=== PATIENT | male | born 1945 | race Hispanic/Latino ===

== ENCOUNTER → 2020-09-22 | Outpatient (CLI) | payer OTHER | END | disposition home or self-care (01) | LOC: RAH 08:58 | PROVIDERS: ATTEND Internal Medicine | DX: R14.0 Abdominal distension (gaseous) (principal); R14.3 Flatulence | CPT/HCPCS: 76700 ==

== ENCOUNTER → 2021-12-28 | Outpatient (CLI) | payer OTHER | END | disposition home or self-care (01) | LOC: RAH 13:01 | PROVIDERS: ATTEND Internal Medicine | DX: E04.1 Nontoxic single thyroid nodule (principal); R13.10 Dysphagia, unspecified | CPT/HCPCS: 76536 ==

== ENCOUNTER 2023-03-02 17:13 | Observation (INO) | payer OTHER ==
[~2023-03-02] VITALS: Ht 170.2 cm; Wt 86.6 kg
[2023-03-02 17:50] LABS: BASOPHILS % (AUTO) 0.7 % (0.0-5.0); EOSINOPHILS % (AUTO) 0.4 % (0.0-8.0); HEMATOCRIT 40.3 % (42-54); LYMPHOCYTES % (AUTO) 20.7 % (21.0-51.0); MEAN CORPUSCULAR HEMOGLOBIN 30.1 pg (27.0-33.0); MEAN CORPUSCULAR HGB CONC 35.5 g/dL (32.0-36.0); MEAN CORPUSCULAR VOLUME 84.8 fL (79-99); NEUTROPHILS % (AUTO) 71.9 % (40.0-77.0); PLATELET COUNT (AUTO) 273 K/uL (130-400); RED BLOOD CELL COUNT(AUTO) 4.75 MIL/uL (4.50-6.20); RED CELL DISTRIBUTION WIDTH 13.3 % (11.0-15.5); WHITE BLOOD COUNT (AUTO) 6.8 K/uL (4.8-10.8)
[2023-03-02 18:02] LABS: CREATININE 0.9 mg/dL (0.5-1.5); POTASSIUM 3.1 mmol/L (3.5-5.1)
[2023-03-02 18:09] LABS: ALBUMIN 3.8 g/dL (3.5-5.0)
[2023-03-02 18:12] LABS: B-TYPE NATRIURETIC PEPTIDE 59 pg/mL (0-100)
[2023-03-02 18:27] LABS: INR 1.09 (0.85-1.15); PROTHROMBIN TIME 11.8 SEC (9.6-11.6)
[2023-03-02] MEDS ORDERED: NITROGLYCERIN 1GM OINT 1 INCH/1GM TD ONE (18:30)
[2023-03-02] MEDS ORDERED: ASPIRIN 81MG CHEW TAB PO ONE (18:30)
[2023-03-02] MEDS ORDERED: KCL 20 MEQ ERTAB PO ONE ×2 (20:00→23:30)
[2023-03-02] MEDS ORDERED: MORPHINE 2 MG SYG IVP PRN (20:30)
[2023-03-02] MEDS ORDERED: CLONIDINE HCL 0.1 MG TABLET PO PRN (20:30)
[2023-03-02] MEDS ORDERED: ACETAMINOPHEN 325 MG TAB PO PRN (20:30)
[2023-03-02] MEDS ORDERED: ONDANSETRON 4MG INJ IVP PRN (20:30)
[2023-03-02] MEDS ORDERED: TEMAZEPAM 15 MG CAPSULE PO PRN (20:30)
[2023-03-02] MEDS ORDERED: LACTULOSE 20 GM/30 ML UDCUP PO PRN (20:30)
[2023-03-02] MEDS ORDERED: HYDRALAZINE 20MG/ML VIAL IV PRN (20:30)
[2023-03-02] MEDS ORDERED: IPRATROPIUM/ALBUTEROL SULFATE 3 ML SOLUTION IH PRN (20:30)
[2023-03-02] MEDS: FAMOTIDINE 20MG TAB PO SCH (23:42)
[2023-03-02] MEDS: ATORVASTATIN 40 MG TABLET PO SCH (23:42)
[2023-03-02] MEDS: DOCUSATE SODIUM 100 MG CAP PO SCH (23:42)
[2023-03-03] MEDS: ENOXAPARIN SODIUM 40 MG/0.4 ML SYRINGE SQ SCH ×2 (03:00→09:09)
[2023-03-03] MEDS ORDERED: OMEP20CA12 PO (04:26)
[2023-03-03] MEDS ORDERED: LEVO50TA11 PO (04:26)
[2023-03-03] MEDS ORDERED: ATOR10TA69 PO (04:26)
[2023-03-03] MEDS ORDERED: AMLO1CAP88 PO (04:26)
[2023-03-03 04:30] VITALS: BP 177/86
[2023-03-03 05:15] LABS: AMPHET/METH SCREEN,URINE NEGATIVE (NEGATIVE); BARBITURATE SCREEN, URINE NEGATIVE (NEGATIVE); BENZODIAZEPINES SCREEN,URINE NEGATIVE (NEGATIVE); CANNABINOID SCREEN,URINE NEGATIVE (NEGATIVE); COCAINE SCREEN,URINE NEGATIVE (NEGATIVE); OPIATE SCREEN,URINE NEGATIVE (NEGATIVE); PHENCYCLIDINE SCREEN,URINE NEGATIVE (NEGATIVE)
[2023-03-03 05:35] LABS: BASOPHILS % (AUTO) 1.4 % (0.0-5.0); EOSINOPHILS % (AUTO) 3.3 % (0.0-8.0); HEMATOCRIT 39.7 % (42-54); LYMPHOCYTES % (AUTO) 25.2 % (21.0-51.0); MEAN CORPUSCULAR HEMOGLOBIN 30.1 pg (27.0-33.0); MEAN CORPUSCULAR HGB CONC 34.8 g/dL (32.0-36.0); MEAN CORPUSCULAR VOLUME 86.5 fL (79-99); MONOCYTES % (AUTO) 9.1 % (3.0-13.0); NEUTROPHILS % (AUTO) 60.8 % (40.0-77.0); PLATELET COUNT (AUTO) 246 K/uL (130-400); RED BLOOD CELL COUNT(AUTO) 4.59 MIL/uL (4.50-6.20); RED CELL DISTRIBUTION WIDTH 13.4 % (11.0-15.5); WHITE BLOOD COUNT (AUTO) 6.4 K/uL (4.8-10.8)
[2023-03-03 05:56] LABS: HEMOGLOBIN A1C 5.8 % (4.0-6.0)
[2023-03-03 06:16] LABS: CREATININE 0.8 mg/dL (0.5-1.5); MAGNESIUM 1.7 mg/dL (1.80-2.40); PHOSPHORUS 2.7 mg/dL (2.5-4.9); POTASSIUM 3.2 mmol/L (3.5-5.1); THYROID STIMULATING HORMONE 2.12 uIU/mL (0.36-3.74)
[2023-03-03] MEDS ORDERED: MAGNESIUM 2GM PREMIX 50ML 50 ML IV PRN (06:30)
[2023-03-03] MEDS ORDERED: POTASSIUM CHLORIDE 10% ELIXIR 20 MEQ/15 ML UDCUP PO PRN (06:30)
[2023-03-03] MEDS ORDERED: POTASSIUM CHLORIDE 10MEQ/100ML 100 ML IV PRN (06:30)
[2023-03-03] MEDS: KCL 20 MEQ ERTAB PO PRN ×3 (06:54→15:37)
[2023-03-03 08:00] VITALS: BP 176/93
[2023-03-03] MEDS: DOCUSATE SODIUM 100 MG CAP PO SCH ×2 (09:08→19:41)
[2023-03-03] MEDS: FAMOTIDINE 20MG TAB PO SCH ×2 (09:08→19:41)
[2023-03-03 11:36] VITALS: BP 128/84
[2023-03-03 16:00] VITALS: BP 173/92
[2023-03-03] MEDS: ATORVASTATIN 40 MG TABLET PO SCH (19:41)
[2023-03-03 20:00] VITALS: BP 142/79
[2023-03-04] VITALS: BP 147/82
[2023-03-04 04:00] VITALS: BP 144/86
[2023-03-04 05:47] LABS: BASOPHILS % (AUTO) 1.2 % (0.0-5.0); EOSINOPHILS % (AUTO) 3.4 % (0.0-8.0); HEMATOCRIT 40.5 % (42-54); LYMPHOCYTES % (AUTO) 23.9 % (21.0-51.0); MEAN CORPUSCULAR HEMOGLOBIN 30.1 pg (27.0-33.0); MEAN CORPUSCULAR HGB CONC 34.8 g/dL (32.0-36.0); MEAN CORPUSCULAR VOLUME 86.5 fL (79-99); MONOCYTES % (AUTO) 6.8 % (3.0-13.0); NEUTROPHILS % (AUTO) 64.3 % (40.0-77.0); PLATELET COUNT (AUTO) 270 K/uL (130-400); RED BLOOD CELL COUNT(AUTO) 4.68 MIL/uL (4.50-6.20); RED CELL DISTRIBUTION WIDTH 13.4 % (11.0-15.5); WHITE BLOOD COUNT (AUTO) 7.3 K/uL (4.8-10.8)
[2023-03-04 06:28] LABS: ALBUMIN 3.4 g/dL (3.5-5.0); CREATININE 0.8 mg/dL (0.5-1.5); MAGNESIUM 2.1 mg/dL (1.80-2.40); POTASSIUM 3.8 mmol/L (3.5-5.1); TOTAL PROTEIN, SERUM 6.7 g/dL (6.0-8.3)
[2023-03-04 08:00] VITALS: BP 162/96
[2023-03-04] MEDS ORDERED: FAMO20TA8 PO (08:51)
== END 2023-03-04 11:00 | disposition home or self-care (01) ==
LOC: EDH 17:13 → EDHIP 20:03 → 4BH 03-03 02:58
PROVIDERS: ADMIT Internal Medicine; ATTEND Internal Medicine
DX: I20.9 Angina pectoris, unspecified (principal); E87.6 Hypokalemia; I10 Essential (primary) hypertension; I48.0 Paroxysmal atrial fibrillation; E07.9 Disorder of thyroid, unspecified; E78.5 Hyperlipidemia, unspecified; K21.9 Gastro-esophageal reflux disease without esophagitis; Z87.442 Personal history of urinary calculi; Z79.899 Other long term (current) drug therapy
CPT/HCPCS: 99285; 82550 ×2; 83874 ×2; 84484 ×3; 80053 ×2; 83880; 85025 ×3; 85610; 36415 ×3; 71045; 93005 ×3; 96372; 96365; 96366; 83036; 84443; 83735 ×2; 84100; 82330; 80061; 80048; 80305; 93306; G0378 ×38; J3475; J1650; A4600